=== PATIENT | male | born 1965 | race Caucasian/White ===

== ENCOUNTER 2016-10-28 12:35 | Emergency (ER) | payer OTHER ==
[~2016-10-28] VITALS: Ht 175.3 cm; Wt 65.9 kg
[2016-10-28 13:17] LABS: HEMATOCRIT 41.9 % (38.0-50.0); MCH 32.6 PG (29.0-34.0); MCV 90.5 FL (86-99); MEAN PLAT.VOLUME 10.1 uM^3 (9.0-12.4); PLATELET COUNT 209 K/uL (156-360); RBC DIS.WIDTH-CV 11.4 % (11.8-14.6); RED BLOOD COUNT 4.63 M/uL (4.00-5.50); WHITE BLOOD COUNT 4.1 K/uL (4.1-10.2)
[2016-10-28 13:29] LABS: CHLORIDE 105 mEq/L (99-109); POTASSIUM 4.4 mEq/L (3.7-5.4); SODIUM 141 mEq/L (136-147)
[2016-10-28 13:30] LABS: GLUCOSE 90 mg/dL (70-99)
[2016-10-28 13:32] LABS: ANION GAP 11 MEQ/L (2-14)
[2016-10-28] MEDS ORDERED: SIMVASTATIN20 MG PO (13:34)
[2016-10-28 13:35] LABS: UREA NITROGEN (BUN) 11 mg/dL (9-23)
[2016-10-28] MEDS ORDERED: COQ10-VIT E 201 EACH PO (13:35)
[2016-10-28] MEDS ORDERED: LO-DOSE ASPIRIN81 M2 PO (13:35)
[2016-10-28 13:38] LABS: GFR ESTIMATE (CALCULATED) > 59 mL/min/
[2016-10-28 13:44] LABS: TROP-I INTERPRETATION NEGATIVE; TROPONIN-I < 0.01 ng/mL (0.0-0.30)
[2016-10-28 17:17] VITALS: BP 122/90
== END 2016-10-28 17:18 | disposition home or self-care (01) ==
LOC: EME 12:35
DX: R07.9 Chest pain, unspecified (principal); E78.5 Hyperlipidemia, unspecified
CPT/HCPCS: 71020; 71275; 80048; 84484; 85027; 93005; 99281; 99284

== ENCOUNTER 2016-11-25 13:26 | Emergency (ER) | payer OTHER ==
[~2016-11-25] VITALS: Ht 175.3 cm; Wt 67.3 kg
[~2016-11-25 13:26] MED LIST: COQ10-VIT E 201 EACH PO; LO-DOSE ASPIRIN81 M2 PO; SIMVASTATIN20 MG PO
[2016-11-25 15:44] LABS: INFLUENZA A VIRAL ANTIGEN POSITIVE; INFLUENZA B VIRAL ANTIGEN NEGATIVE
[2016-11-25] MEDS ORDERED: TESSALON200 MG PO (15:56)
[2016-11-25 16:14] VITALS: BP 121/91
== END 2016-11-25 16:14 | disposition home or self-care (01) ==
LOC: EME 13:26
PROVIDERS: Physician Assistant
DX: J10.1 Influenza due to other identified influenza virus with other respiratory manifestations (principal); E78.5 Hyperlipidemia, unspecified
CPT/HCPCS: 71020; 87502; 94640; 94640 76; 99281; 99284; J7512

== ENCOUNTER 2017-04-30 13:18 | Emergency (ER) | payer OTHER ==
[~2017-04-30] VITALS: Ht 175.3 cm; Wt 66.9 kg
[~2017-04-30 13:18] MED LIST changes: +TESSALON200 MG PO
[2017-04-30 13:42] LABS: HEMATOCRIT 41.6 % (38.0-50.0); MCH 31.9 PG (29.0-34.0); MCHC 34.6 G/DL (30.0-36.0); MCV 92.2 FL (86-99); PLATELET COUNT 251 K/uL (156-360); RBC DIS.WIDTH-CV 11.6 % (11.8-14.6); RBC DIS.WIDTH-SD 39.2 % (39-53); RED BLOOD COUNT 4.51 M/uL (4.00-5.50)
[2017-04-30 13:56] LABS: CHLORIDE 106 mEq/L (99-109); POTASSIUM 4.6 mEq/L (3.7-5.4); SODIUM 143 mEq/L (136-147)
[2017-04-30 13:57] LABS: GLUCOSE 100 mg/dL (70-99)
[2017-04-30 13:59] LABS: ANION GAP 8 MEQ/L (2-14)
[2017-04-30 14:01] LABS: GFR ESTIMATE (CALCULATED) > 59 mL/min/
[2017-04-30 14:02] LABS: UREA NITROGEN (BUN) 11 mg/dL (9-23)
[2017-04-30 14:07] LABS: TROP-I INTERPRETATION NEGATIVE; TROPONIN-I < 0.01 ng/mL (0.0-0.30)
[2017-04-30 16:06] LABS: CREATINE KINASE 45 IU/L (1-294); TOTAL CK 45 IU/L (1-294)
[2017-04-30 16:07] LABS: TROP-I INTERPRETATION NEGATIVE; TROPONIN-I < 0.01 ng/mL (0.0-0.30)
[2017-04-30 16:13] LABS: CK-MB 0.9 ng/mL (0.0-4.9)
[2017-04-30 16:59] VITALS: BP 139/88
== END 2017-04-30 17:00 | disposition home or self-care (01) ==
LOC: EME 13:18
PROVIDERS: Emergency Medicine
DX: R07.89 Other chest pain (principal); E78.5 Hyperlipidemia, unspecified; Z82.49 Family history of ischemic heart disease and other diseases of the circulatory system
CPT/HCPCS: 71020; 80048; 82550 91; 82553; 84484; 85027; 93005; 99281; 99285